=== PATIENT | male | born 1935 | race Caucasian/White ===

== ENCOUNTER 2018-10-16 10:12 | Inpatient (IN) ==
[2018-10-16] MEDS ORDERED: MORPHINE IV ONE (10:58)
[2018-10-16] MEDS ORDERED: SODIUM CHLORIDE 0.9% INJ ONE (10:59)
[2018-10-16] MEDS ORDERED: PHENERGAN IV ONE (10:59)
[2018-10-16 11:16] LABS: ALB/GLOB RATIO 1.6; ALBUMIN 4.2 g/dL (3.5-5.0); CALCIUM 8.9 mg/dL (8.8-10.2); CREATININE 1.2 mg/dL (0.7-1.2); POTASSIUM 4.6 mmol/L (3.5-5.1); TOTAL BILIRUBIN 0.71 mg/dL (0.20-1.00); TOTAL PROTEIN 6.9 g/dL (6.3-8.3)
[2018-10-16 11:28] LABS: BASO# 0.05 X1000 (0.0-0.2); BASO% 0.6 % (0.0-0.8); EOS# 0.16 X1000 (0.0-0.7); EOS% 1.8 % (0.0-10.0); HEMOGLOBIN 12.3 g/dL (14.0-18.0); IMM GRAN# 0.03 X1000 (0.0-0.04); IMM GRAN% 0.3 % (0.0-0.5); LYMPH# 2.33 X1000 (1.2-3.4); LYMPH% 26.6 % (20.5-51.1); MCH 31.1 PG (27-31); MCHC 33.2 g/dL (33-37); MCV 93.4 FL (81-99); MPV 9.6 FL (7.4-10.4); NEUT# 5.49 X1000 (1.4-6.5); NEUT% 62.7 % (42.2-75.2); PLT 218 X1000 (130-400); RBC 3.96 XMIL (4.7-6.1); RDW 13.7 % (11.5-14.5); WBC 8.76 X1000 (4.8-10.8)
--- NOTE | 2018-10-16 11:56 | Diag Imaging Result Doc PS360 ---
CHEST-2 VIEWS - 10/16/2018 INDICATION: chest pain COMPARISON: 09/30/2017 FINDINGS: Lungs are hyperexpanded compatible with COPD. There is some questionable infiltrate in the lingula with loss of the left heart border. There is mild cardiomegaly. No pneumothorax or pleural effusion. IMPRESSION: Faint lingular infiltrate/bronchial pneumonia. Severe COPD. Mild cardiomegaly. Electronically signed by Yunior Henriquez 10/16/2018 11:54 AM
--- NOTE | 2018-10-16 12:20 | PROVIDER DOCUMENTATION ---
This chart was entered by Rosenda Gamino Scribe, acting as scribe for Bud Chisholm DO. HPI-Chest Pain - General Chief Complaint: Chest Pain Stated Complaint: CP x 3 days Time Seen by Provider: 10/16/18 10:19 Source: patient, family, EMS Allergies/Adverse Reactions: Patient Allergies Allergy/AdvReac Type Severity Reaction Status Date / Time Penicillins Allergy Intermediate RASH Verified 01/13/18 06:35 Sulfa (Sulfonamide Allergy Intermediate RASH Verified 01/13/18 06:35 Antibiotics) [Sulfa(Sulfonamide Antibiotics)] Home Medications: Home Medication List Medication Instructions Recorded Confirmed Last Taken Type Aspirin 81 mg PO BID 01/07/15 10/16/18 01/04/18 History Pregabalin [Lyrica] 75 mg PO QHS #0 capsule 01/09/15 10/16/18 01/11/18 21:00 Rx Tamsulosin [Flomax] 0.4 mg PO DAILY #0 capsule 01/09/15 10/16/18 01/12/18 09:00 Rx Albuterol Sulfate [Proair Hfa] 8.5 gm IH PRN PRN 01/10/18 10/16/18 01/10/18 Hi story Budesonide/Formoterol Fumarate 1 puff INH BID 01/10/18 10/16/18 01/11/18 14:00 History [Symbicort 160-4.5 Mcg Inhaler] Lansoprazole 30 mg PO DAILY 01/10/18 10/16/18 01/12/18 08:00 History Levothyroxine [Synthroid] 125 microgm PO DAILY 01/10/18 10/16/18 01/12/18 08:00 History Metoprolol [Lopressor] 25 mg PO DAILY 01/10/18 10/16/18 01/12/18 08:00 History Zolpidem [Ambien] 10 mg PO QHS 01/10/18 10/16/18 01/12/18 21:00 History Hydrocodone/Acetaminophen [[place] 1 each PO Q4H PRN PRN #12 tablet 01/13/18 10/16/18 Unknown Rx 7.5-325 Tablet] - History of Present Illness-CP Nature of Presenting Problem: 82 y/o male presents to ED with worsening, pressure-like sternal/L sided chest pain, tingling in L shoulder/arm, and SOB onset 3 days ago. Pt reports breathing exacerbates his pain. Pt denies injury. Pt states he took 3-4 aspirin and 2-3 nitro at home this morning. Pt reports hx CHF and stents. Pt is alert and oriented. Location: reports: central, other (L sided) Chest Pain Radiation: reports: no radiation Quality of Pain: reports: pressure Severity in ED: severe Onset/Duration: 3 days ago Timing: still present, getting worse Context/Activities at Onset: reports: none Modifying Factors: worse with: breathing, palpation Associated Symptoms: reports: shortness of breath Nitro Today/Relief: 0.4 mg x 3, 0.4 mg x 4, provided at home, mild relief Aspirin Treatment Today: 81 mg x 3, 81 mg x 4, provided at home Prior Chest Pain/Cardiac Workup: reports: heart attack, other (stents; CHF) Similar Symptoms Previously?: Yes Recently Seen Here or By Another Healthcare Provider: No Review of Systems - Adult - REVIEW OF SYSTEMS - ADULT Constitutional: denies: chills, fever Eyes: reports: no symptoms reported Ears, Nose, Mouth & Throat: reports: no symptoms reported Cardiovascular: reports: chest pain. denies: palpitations Respiratory: reports: shortness of breath. denies: cough Gastrointestinal: denies: abdominal pain, diarrhea, nausea, vomiting Genitourinary: reports: no symptoms reported Musculoskeletal: denies: back pain, joint pain Integumentary: reports: no symptoms reported Neurological: reports: other (tingling in L shoulder/arm). denies: dizziness/vertigo, seizure Psychiatric: reports: no symptoms reported Endocrine: reports: no symptoms reported Hematologic/Lymphatic: reports: no symptoms reported Allergic/Immunologic: reports: no symptoms reported All Other Systems: Reviewed and Negative Past History - Adult - PAST MEDICAL HISTORY-ADULT Review of Records: reports: Old Records Reviewed, Nursing Assessment Review, Medications Reviewed Major Childhood Illnesses: reports: denies history Cardiovascular: reports: CHF, HTN, hyperlipidemia, [place] Genitourinary: reports: cancer (bladder) Endocrine/Immune: reports: thyroid disorder (hypo; thryroidectomy) Other Conditions: reports: cataract/glaucoma, MRSA - PRIOR SURGERIES/PROCEDURES Surgical/Procedure History: reports: hernia repair, other (eyebrow lift; cataract removal bilaterally; thyroidectomy; bladder) - IMMUNIZATION STATUS Childhood Immunizations: See Nurse Assessment Flu Vaccine: See Nurse Assessment - FAMILY HISTORY Family History: reviewed, not pertinent - SOCIAL HISTORY Smoking: less than 1 pack/day Provider spent 3-5 mins advising pt. on dangers of tobacco.: Discussed manners to quit use, and f/u contacts for add'l counseling. Substance Use: none/never Alcohol Use Frequency: rarely Living Situation: family Physical Exam-General - PHYSICAL EXAM-ADULT Initial Vital Signs Reviewed: Yes - CONSTITUTIONAL General Appearance: appears well, alert, no apparent distress - EYES Eyes: PERRL/EOMI, pink conjunctivae - HEAD, EARS, NOSE, MOUTH & THROAT HENMT: normocephalic/atraumatic, moist mucous membranes, normal ENT inspection - NECK Neck: non-tender, full range of motion - RESPIRATORY Respiratory: lungs clear, normal breath sounds, other (L chest wall tenderness) - CARDIOVASCULAR Cardiovascular: bradycardia - GASTROINTESTINAL (ABDOMEN) Abdominal Exam: normal bowel sounds, non tender, soft - MUSCULOSKELETAL Back Exam: normal inspection, no CVA tenderness, no vertebral tenderness Extremity: normal range of motion, non-tender, normal gait - SKIN Integumentary: normal color, warm/dry - NEUROLOGIC Neurologic: grossly normal - PSYCHIATRIC Psych/Mental Status: normal mood/affect, normal thought content, normal thought process, oriented x 3 - HEART Score HEART Score: History: Moderately Suspicious HEART Score: ECG: Normal HEART Score: Age: > or = 65 Years HEART Score: Risk Factors for Atherosclerotic Disease: > or = 3 Risk Factors or History of Atherosclerotic Disease HEART Score: Troponin: < or = Normal Limit Total HEART Score:: 5 Progress - PLAN OF CARE/RESULTS Progress/Plan/Lab Results: Vital Signs - 8 hr 10/16/18 10:15 Temperature 98.1 F Pulse Rate 61 Respiratory Rate 24 Blood Pressure 119/78 O2 Sat by Pulse Oximetry 97 Laboratory Results - last 24 hr 10/16/18 10/16/18 10/16/18 10:44 10:44 10:44 WBC 8.76 RBC 3.96 L Hgb 12.3 L Hct 37.0 L MCV 93.4 MCH 31.1 H MCHC 33.2 RDW Std Deviation 13.7 Plt Count 218 MPV 9.6 Immature Gran % (Auto) 0.3 Neut % (Auto) 62.7 Lymph % (Auto) 26.6 Pierce % (Auto) 8.0 Eos % (Auto) 1.8 Baso % (Auto) 0.6 Immature Gran # (Auto) 0.03 Neut # (Auto) 5.49 Lymph # (Auto) 2.33 Pierce # (Auto) 0.70 H Eos # (Auto) 0.16 Baso # (Auto) 0.05 Sodium 137 Potassium 4.6 Chloride 103 Carbon Dioxide 29 Anion Gap 5 BUN 21 Creatinine 1.2 Estimated GFR/1.73 m2 58 BUN/Creatinine Ratio 18 Glucose 112 H Calculated Osmolality 278 Calcium 8.9 Total Bilirubin 0.71 AST 11 ALT 8 L Alkaline Phosphatase 79 Creatine Kinase 32 Troponin T < 0.010 Total Protein 6.9 Albumin 4.2 Globulin 2.7 Albumin/Globulin Ratio 1.6 Orders Category Date Time Status CHEST-2 VIEWS [RAD] Stat Exams 10/16/18 10:49 Completed CBC WITH ELECTRONIC DIFF [HEME] Stat Lab 10/16/18 10:44 Completed CK PROFILE [SP CHEM] Stat Lab 10/16/18 10:44 Completed COMPREHENSIVE METABOLIC PANEL [CHEM] Stat Lab 10/16/18 10:44 Completed TROPONIN T Stat Lab 10/16/18 10:44 Completed Morphine Med 10/16/18 10:58 Discontinued 4 mg IV NOW ONE Promethazine [Phenergan] Med 10/16/18 10:59 Discontinued 12.5 mg IV NOW ONE Sodium Chloride 0.9% Med 10/16/18 10:59 Discontinued 10 ml INJ NOW ONE O2 Per Protocol Stat Oth 10/16/18 10:58 Active EKG [EKG] Stat Ther 10/16/18 10:50 Ordered Result Diagrams: 10/16/18 10:44 10/16/18 10:44 - EKG 1 Time of EKG reading by physician:: 10:21 EKG Read and Signed by:: Bud Chisholm EKG Interpretation (*Must complete 3 of following elements*): Abnormal Rate: 75 Rhythm: NSR [place]: normal QRS: other (possible inferior infarct) CA Interval: normal ST Wave: normal - XRAY 1 XRAY Study: Chest Impression: See EMR Report ([facility] [address], [address], [place] [id number] Department of Imaging Patient: IAN ANDREWS Date: 10/16/18MR#: [id number] : 1936ADM Status: REG ERAcct#: [id number] Age/Sex: 82/MRoom/Bed: Loc: ED Ordering Physician: Bud Chisholm DO Family Physician: Marina Moss MD Reason for Procedure: chest pain Signed CHEST-2 VIEWS - 10/16/2018 INDICATION: chest pain COMPARISON: 09/30/2017 FINDINGS: Lungs are hyperexpanded compatible with COPD. There is some questionable infiltrate in the lingula with loss of the left heart border. There is mild cardiomegaly. No pneumothorax or pleural effusion. IMPRESSION: Faint lingular infiltrate/bronchial pneumonia. Severe COPD. Mild cardiomegaly. Electronically signed by Yunior Henriquez 10/16/2018 11:54 AM 10/16/18 1154 Interpreting Physician: Yunior Henriquez MD Dictated Date/Time: 10/16/18 1152 cc: Bud Chisholm DO; Marina Moss MD) - CONSULTS/PCP/HOSPITALIST Notification #1 *Consult/PCP/Hospitalist*: CHARO Cerna for Dr. Mckeon Time Discussed: 12:17 Reason/Comments: Chest pain; HEART score of 5; pneumonia Consult Disposition: Admit Departure - Departure Date of Disposition Decision: 10/16/18 Time of Disposition Decision: 12:19 DIAGNOSIS: Tobacco use disorder Chest pain Qualifiers: Chest pain type: unspecified Qualified Code(s): R07.9 - Chest pain, unspecified Pneumonia Qualifiers: Pneumonia type: due to unspecified organism Laterality: left Lung location: lower lobe of lung Qualified Code(s): J18.1 - Lobar pneumonia, unspecified organism Disposition: ADMITTED INPATIENT 09 Certified Medical Emergency: Emergent Condition: Stable Referrals and Follow-Ups: Marina Moss MD [Primary Care Provider] - Discharge Education: Steps to Quit Smoking, [id number] - Critical Care Note This patient required my direct & personal management of CC.: No Attestation - Physician/ ALIVIA Attestation Patient care was provided by Advanced Practice Provider:: No The physician spent face to face time with patient:: Yes Advanced Practice Provider documentation review:: Supervising physician onsite and consulted in the evaluation and care of this patient. The physician did have a face to face encounter with the patient. This chart was documented by the indicated scribe, (Rosenda Gamino, Gal) and accurately reflects the services I performed and decisions made by me, Bud Chisholm DO, as attested by the provider's signature.
--- NOTE | 2018-10-16 13:46 | HISTORY AND PHYSICAL ---
PRIMARY CARE PROVIDER: CHARO Peace; however, he has not gone to his first visit yet. METAL FABRICATING INSPECTOR: Dr. Gay. FIELD MECHANIC: Dr. Cornejo, which he has not had his appointment yet either. CHIEF COMPLAINT: Left-sided chest pain. HISTORY OF PRESENT ILLNESS: Mr. Patel is an 82-year-old, male who carries a past medical history of COPD. He is not on any home O2 or inhalers. He continues to smoke 5 to 6 cigarettes a day. Hypertension, GERD, diverticulitis, and a history of bladder cancer, status post procedures with urology. Patient reported to the ED with a 3-day history of being woken up in sleep with a left stabbing chest pain that goes through to his shoulder intermittently. It is worse with deep breath and movement. He has had some tingling in his right arm and questionable palpitations but no associated nausea, vomiting, diaphoresis, dizziness. The pain lasts about 5 to 6 seconds and if he is very still, it will go away. He does report a productive cough with grayish sputum, heartburn. No fever. No chills. Recent sinus issues. Workup in the ED with a chest x-ray that showed faint lingular infiltrate, bronchial pneumonia, severe COPD, and mild cardiomegaly. He is being admitted for pneumonia. We will start him on IV Levaquin given his penicillin and sulfa allergy, as well as rule him out for any with cardiac enzymes, his first set was negative. PAST MEDICAL HISTORY: 1. Patient is denying history of diabetes mellitus. However, it is in his most recent history by Dr. Patel. 2. Severe COPD. 3. Hypertension. 4. History of bladder cancer, status post treatment by urology. 5. Diverticulitis. 6. Gastroesophageal reflux disease. 7. Peripheral vascular disease. 8. Congestive heart failure. PAST SURGICAL HISTORY: 1. Urology surgeries for his bladder cancer. 2. Thyroidectomy in 2009. REVIEW OF SYSTEMS: Twelve-point review of systems completely negative except for those mentioned in the HPI. FAMILY HISTORY: Reviewed and noncontributory. SOCIAL HISTORY: He continues to smoke 5 to 6 cigarettes a day and throughout the years, at one point, he was smoking 4 packs per day and then at times, he would only smoke 1 pack per day. No alcohol, marijuana, or illicit drug use. PHYSICAL EXAMINATION: VITAL SIGNS: Temperature is 98.1 degrees, heart rate 61, respirations 24, blood pressure 119/78, O2 of 97% on room air. GENERAL: Mr. Patel is a pleasant, 82-year-old, male who is sitting up in the bed, in no acute distress. HEENT: Atraumatic, normocephalic. PERRL. NECK: Supple. Trachea midline. CARDIOVASCULAR: S1, S2 appreciated. No murmurs, gallops, rubs noted. No JVD noted. No lower extremity edema. LUNGS: Somewhat decreased airway entry. The patient was having a hard time taking in a deep breath secondary to pain but I did not appreciate any rales, rhonchi, or wheezes. ABDOMEN: Soft, nontender, nondistended. Positive bowel sounds in 4 quadrants. EXTREMITIES: No cyanosis. NEUROLOGIC: Patient is awake, alert, oriented x4. Follows commands. Moves all extremities. DIAGNOSTIC DATA: Chest x-ray shows faint lingular infiltrate, bronchial pneumonia, severe COPD, and mild cardiomegaly. EKG is currently pending. LABORATORY DATA: White count 8, hemoglobin and hematocrit 12 and 37, platelet count is 218,000. Sodium 137, potassium 4.6, BUN 21, creatinine 1.2, blood glucose is 112. First set of troponin is 0.010. ASSESSMENT AND PLAN: 1. Probable lingular infiltrate, bronchial pneumonia. We will treat him with intravenous Levaquin. The patient has an allergy to penicillin and sulfa. We will continue with bronchodilators, supplemental oxygen, and aggressive pulmonary toilet. 2. Severe chronic obstructive pulmonary disease. We will continue bronchodilators and his home inhalers. However, in interview, he denied taking any home inhalers. 3. Congestive heart failure history, mild cardiomegaly seen on chest x-ray. We will recheck an echocardiogram. 4. Left-sided chest pain. His first set of cardiac enzymes was negative, probably due to his pneumonia. We will rule him out with 3 sets of cardiac enzymes and we will await those results before we consult cardiology and have him follow up as an outpatient. 5. Hypertension. We will continue home medications. 6. Diabetes mellitus. Patient takes no home medications for this. However, he denies history of diabetes. 7. Gastroesophageal reflux disease. 8. Bladder cancer history. 9. Thyroidectomy. We will continue his Synthroid. 10. Osteoarthritis and degenerative disk disease in the spine. We will continue with home Honeydew. 11. Further recommendations to follow physician evaluation, laboratory and diagnostic data. Dictated by CHARO Davis for Burt Mckeon MD cc: MD Joel Santana CRNP Mamoun I. Najjar, MD William D. Denney, MD
[2018-10-16] MEDS ORDERED: TYLENOL PO PRN ×2 (13:50)
[2018-10-16] MEDS ORDERED: ZOFRAN IV PRN (13:50)
--- NOTE | 2018-10-16 14:53 | HISTORY AND PHYSICAL ---
ADDENDUM: I have seen Mr. Patel today. I have examined him. The daughter and the granddaughter were at the bedside at the time of the encounter. Mr. Patel gives a history of about 4 days of chest pain. It seems to be pleuritic in nature, which has been progressively getting worse. This morning, he thinks that any little breath that he takes is extremely painful. I have also reviewed his labs and imaging studies. A chest x-ray seems to suggest a lingular infiltrate/bronchopneumonia. There is severe COPD and cardiomegaly. He does have an echocardiogram done in May of this year, which suggests an ejection fraction of 50%, and there was some hypokinesis of the inferior wall and basal inferolateral region. I have not seen his recent EKG yet. All his lab seems to be within normal range. ASSESSMENT: 1. Pleuritic left-sided chest pain with chest x-ray suggestive of a lingular pneumonia. The patient has a history of a remote superficial carcinoma of the bladder, which makes a good case to be concerned for if there is any malignancy. We are going to do a CTA of the lungs to rule out any pulmonary embolism and also to make sure that it is just not a pneumonia we are dealing with. 2. Advanced chronic obstructive pulmonary disease. The patient has mild wheezing. We will administer bronchodilation therapy. Consult Respiratory Therapy. The patient is already on antibiotics. 3. Ongoing tobacco use. The patient has been advised. 4. History of congestive heart failure, currently euvolemic. An echocardiogram early this year showed an ejection fraction of 50%, but this seems to suggest some hypokinesis of the inferior wall and basal wall, which would be concerning for a coronary artery disease. We are going to be trending the troponin for now, and give further recommendations once we know the results of the CTA. Please refer to the details of the history and physical, which has been dictated by the DEAF INTERPRETER in the chart. cc: Burt Mckeon MD
[2018-10-16] MEDS: NORCO-7.5 PO PRN ×2 (15:05→19:33)
[2018-10-16] MEDS: LEVAQUIN 750 MG/D5W 750 MG/150 ML IVPB IV SCH (15:06)
[2018-10-16] MEDS: XOPENEX NEB INH SCH ×3 (15:41→23:22)
[2018-10-16] MEDS: SYMBICORT 160/4.5 MICROGM INHALER INH SCH (19:10)
--- NOTE | 2018-10-16 20:25 | Diag Imaging Result Doc PS360 ---
CT ANGIOGRM PULMONARY ARTERIES - 10/16/2018 INDICATION: pleuritic chest pain TECHNIQUE: Axial CT images were obtained after administering intravenous contrast. Coronal MIP images were generated. COMPARISON: None FINDINGS: There is no pulmonary embolism. No adenopathy. There is cardiomegaly. Aortic arch and great vessels are normal. There is some mild patchy atelectasis or infiltrate in both lower lobes. There is also mild COPD and pulmonary fibrosis. There are moderate degenerative changes of the spine. No acute or suspicious bony lesion. IMPRESSION: Negative for pulmonary embolism. Mild cardiomegaly. Mild nonspecific atelectasis or infiltrate in both lower lobes. This exam was performed using automated exposure control, adjustment of mA or kV according to patient size, and/or use of iterative reconstruction technique Electronically signed by Yunior Henriquez 10/16/2018 8:21 PM
[2018-10-16] MEDS: ASPIRIN PO SCH (20:38)
[2018-10-16] MEDS: LYRICA PO SCH (20:38)
[2018-10-16] MEDS: AMBIEN PO SCH (20:38)
[2018-10-17] MEDS: XOPENEX NEB INH SCH ×6 (03:11→23:06)
[2018-10-17 06:28] LABS: BASO# 0.02 X1000 (0.0-0.2); BASO% 0.2 % (0.0-0.8); EOS# 0.12 X1000 (0.0-0.7); EOS% 1.4 % (0.0-10.0); HEMATOCRIT 35.3 % (42.0-52.0); HEMOGLOBIN 11.5 g/dL (14.0-18.0); IMM GRAN# 0.02 X1000 (0.0-0.04); IMM GRAN% 0.2 % (0.0-0.5); LYMPH# 2.17 X1000 (1.2-3.4); LYMPH% 25.5 % (20.5-51.1); MCH 31.2 PG (27-31); MCHC 32.6 g/dL (33-37); MCV 95.7 FL (81-99); MONO# 1.06 X1000 (0.11-0.59); MONO% 12.5 % (1.7-9.3); MPV 9.7 FL (7.4-10.4); NEUT# 5.12 X1000 (1.4-6.5); NEUT% 60.2 % (42.2-75.2); PLT 205 X1000 (130-400); RBC 3.69 XMIL (4.7-6.1); RDW 14.2 % (11.5-14.5); WBC 8.51 X1000 (4.8-10.8)
[2018-10-17] MEDS: PRILOSEC PO SCH (06:33)
--- NOTE | 2018-10-17 06:38 | Diag Imaging Result Doc PS360 ---
EXAM: CHEST-PORTABLE HISTORY: Pneumonia TECHNIQUE: Portable chest single view COMPARISON: 10/16/2018 FINDINGS: The lungs are well expanded. The left hemidiaphragm is elevated. The heart is mildly prominent. The vessels are not distended. There are infiltrates or atelectasis in the left lung base. No effusion identified. IMPRESSION: Interval worsening in the left base Electronically signed by Elie Thrasher 10/17/2018 6:36 AM
[2018-10-17 06:54] LABS: HEMOGLOBIN A1C 4.4 % (4.8-6.0)
[2018-10-17 06:57] LABS: AGAP 12; ALB/GLOB RATIO 1.3; ALBUMIN 3.8 g/dL (3.5-5.0); ALKALINE PHOSPHATASE 76 U/L (32-122); BUN 22 mg/dL (8-22); CALCIUM 8.7 mg/dL (8.8-10.2); CHLORIDE 100 mmol/L (98-107); CHOLESTEROL 122 mg/dL (0-200); COSMO 276; CREATININE 1.5 mg/dL (0.7-1.2); ESTIMATED GFR 45; GLUCOSE 113 mg/dL (70-104); GOT 10 U/L (10-34); GPT 6 U/L (10-44); HDL 33 mg/dL (35-55); LDL 71 mg/dL; MAGNESIUM 1.9 mg/dL (1.5-2.7); SODIUM 136 mmol/L (136-145); TCO2 24 mmol/L (25-35); TOTAL BILIRUBIN 0.49 mg/dL (0.20-1.00); TOTAL PROTEIN 6.7 g/dL (6.3-8.3); TRIGLYCERIDES 88 mg/dL (39-160); VLDL 18 mg/dL
--- NOTE | 2018-10-17 07:17 | EKG Report ---
Test Performed on : 10/17/2018 07:00:16 AM Test Reason : cp fu Blood Pressure : / mmHG Vent. Rate : 055 BPM Atrial Rate : 055 BPM P-R Int : 184 ms QRS Dur : 098 ms QT Int : 454 ms P-R-T Axes : 067 094 -20 degrees QTc Int : 434 ms Sinus bradycardia. with premature atrial complexes. Rightward axis Possible Inferior infarct (cited on or before 09-OCT-2009) T wave abnormality, consider lateral ischemia Abnormal ECG When compared with ECG of 16-OCT-2018 10:21, (Unconfirmed) premature atrial complexes. are now present Serial changes of Inferior infarct present Confirmed by Carlos WESTON, Kimani Richardson ([id number]) on 10/17/2018 9:31:18 AM
[2018-10-17] MEDS: FLOMAX PO SCH (08:00)
[2018-10-17] MEDS: ASPIRIN PO SCH ×2 (08:00→20:51)
--- NOTE | 2018-10-17 08:00 | EKG Report ---
Test Performed on : 10/16/2018 10:21:44 AM Test Reason : chest pain Blood Pressure : / mmHG Vent. Rate : 075 BPM Atrial Rate : 075 BPM P-R Int : 170 ms QRS Dur : 086 ms QT Int : 390 ms P-R-T Axes : 041 048 -07 degrees QTc Int : 435 ms Normal sinus rhythm. Possible Inferior infarct , age undetermined Abnormal ECG When compared with ECG of 10-JAN-2018 11:08, Nonspecific T wave abnormality now evident in Lateral leads Unconfirmed Result
[2018-10-17] MEDS: SYNTHROID PO SCH (08:01)
[2018-10-17] MEDS: LOPRESSOR PO SCH (08:01)
[2018-10-17] MEDS: SYMBICORT 160/4.5 MICROGM INHALER INH SCH ×2 (08:06→19:18)
[2018-10-17] MEDS ORDERED: NON-FORMULARY MED (Lansoprazole 30 MG) PO SCH (09:00)
[2018-10-17] MEDS ORDERED: ASPIRIN PO SCH (09:00)
[2018-10-17] MEDS: NS NEB INH SCH (11:16)
[2018-10-17] MEDS: LEVAQUIN 750 MG/D5W 750 MG/150 ML IVPB IV SCH (13:28)
[2018-10-17] MEDS: SOLU-MEDROL IV SCH (13:28)
--- NOTE | 2018-10-17 14:15 | ECHO REPORT ---
ORDER DATE: 10/17/2018 INDICATION: Chest pain. FINDINGS: 1. Right atrium appears normal in size. 2. There is mild tricuspid regurgitation. The RV systolic pressure is 38. 3. Normal RV size and systolic function. 4. No significant pulmonic insufficiency. 5. Normal left atrial size with a dimension of 3.3 cm. 6. No mitral valve prolapse. There is mild, possibly moderate mitral regurgitation. This is a very eccentric jet. This may be an underestimation. There was no evidence of mitral stenosis. 7. Normal LV size, end-diastolic dimension of 4.9 cm. There does not appear to be any clear evidence of significant left ventricular hypertrophy. The LV systolic function is difficult to estimate secondary to off axis views and poor resolution of the endocardial border. Estimated ejection fraction is borderline normal to normal with an estimation in the 50 to 55 percent range. 8. Aortic valve is sclerotic. There does not appear to be any clear evidence of stenosis. 9. Aorta appears normal in visualized segments. 10. No pericardial effusion seen. cc: Scooter Medina MD
--- NOTE | 2018-10-17 14:29 | CONSULTATION ---
DATE OF CONSULTATION: 10/17/2018 IMPRESSION: 1. Chest pain very atypical for myocardial ischemia and pleuritic. Features more suggestive of musculoskeletal etiology, although initial chest x-ray suggests possibility of lingular pneumonia. 2. Severe chronic obstructive pulmonary disease. 3. Atherosclerotic coronary artery disease. Patient has history of previous coronary angioplasty/stenting following myocardial infarction in the past. Last stress myocardial perfusion study in October 2016 indicated fixed inferolateral defect with some lata-infarct ischemia. Left ventricular ejection fraction has been around 40%. The patient has expressed preference for medical management unless clear indication of ischemia. 4. Hypertension. 5. Hyperlipidemia. 6. Chronic cigarette use, ongoing. RECOMMENDATIONS: 1. Agree with treatment for possible pneumonia as you are doing. 2. Smoking cessation strongly advised. 3. We will follow up after he improves and give consideration to re-evaluation with Lexiscan myocardial perfusion study, probably as an outpatient. As per patient wishes, unless he shows significant burden of inducible myocardial ischemia, conservative/medical management will be pursued. HISTORY: This 82-year-old, white male with a past history of atherosclerotic coronary artery disease, severe COPD, hypertension, hyperlipidemia, and peripheral vascular disease was admitted yesterday with chest pain. He reports having some tendency for left-sided, sharp chest discomfort, worse with deep breath for a few days. Discomfort is also worse with some movement of the upper extremities and torso. Discomfort is generally brief lasting, just a few seconds at a time and then going away. However, he could readily provoke discomfort with a deep breath. Discomfort intensified yesterday, prompting him to come in. Discomfort was improved with narcotic analgesics. He has had minimal cough. He is not aware of any fever. Chest x-ray on admission suggested possible lingular pneumonia. He has been started on treatment for this. Unfortunately, he continues to smoke 5 or 6 cigarettes a day. He admits that he probably never will quit. There has been no chest pain that resembles angina. PAST MEDICAL HISTORY: 1. Atherosclerotic coronary artery disease as outlined above. 2. Severe chronic obstructive pulmonary disease. 3. Hypertension. 4. History of bladder cancer and previous surgical management. 5. Diverticular disease of the colon. 6. Gastroesophageal reflux disease. 7. Peripheral vascular disease. 8. Ischemic cardiomyopathy with left ventricular ejection fraction of 40%. PAST SURGICAL HISTORY: Includes surgery for bladder cancer and previous thyroidectomy. ALLERGIES: He is allergic or intolerant to penicillin and sulfa. MEDICATIONS PRIOR TO ADMISSION: As listed. SOCIAL HISTORY: He lives in [place]. He smokes 5 or 6 cigarettes per day and admits he probably never will quit. He previously smoked very heavily, at a rate of 4 packs per day at one point. He does not use alcohol. FAMILY HISTORY: Negative for premature coronary disease. REVIEW OF SYSTEMS: Pulmonary: Noteworthy for chronic dyspnea symptoms that do not seem to have increased. He has had minimal cough. Gastrointestinal: Negative. Constitutional: Negative for fever. Remainder of review of systems negative/noncontributory with 14 total systems reviewed. PHYSICAL EXAMINATION: General: This is a pleasant, elderly, white male in no distress, on supplemental oxygen per nasal cannula. Vital Signs: Blood pressure 149/77, heart rate 61, oxygen saturation 95% on nasal cannula oxygen at 2 L per minute. HEENT Examination: Extraocular movements appear intact. Mucous membranes moist. Neck: Supple. There is no significant jugular venous distention. There are no carotid bruits. Chest: Clear to auscultation with somewhat diminished breath sounds diffusely. Cardiac Examination: Reveals a regular rate and rhythm without appreciable murmur or gallop. Abdomen: Soft. Bowel sounds are normal. Extremities: Without edema. Neurologic: Examination reveals him to be alert and fully oriented. Speech is fluent. He moves all 4 extremities equally well. Skin: Warm and dry. Psychiatric: Examination reveals his mood to be appropriate. PERTINENT DATA: Twelve lead EKG obtained on admission is reviewed and demonstrates normal sinus rhythm and a probable inferior infarct of undetermined age. LABORATORY DATA: Includes a white blood cell count of 8.51, hematocrit 35.3, hemoglobin 11.5, platelet count 205,000. Sodium 136, potassium 4.0, chloride 100, carbon dioxide 24, BUN 22, creatinine 1.5, glucose 113. Initial troponin T less than 0.01, followup troponin T less than 0.01, and third follow up troponin T less than 0.01. Triglycerides 88, total cholesterol 122, LDL cholesterol 71, HDL cholesterol 33. cc: Reji Gay MD
--- NOTE | 2018-10-17 14:47 | PROGRESS NOTE ---
DATE: 10/17/2018 SUBJECTIVE: This morning Mr. Patel refers to be feeling a lot better. Earlier on, I was told by his daughter that Mr. Patel had developed swelling under his chin. At that time, he had been sent for echocardiogram, so I could not see him. When I went back to check on him the 2nd time, there were 2 daughters and a granddaughter in the in the room with him, and he did say that the swelling has actually resolved, but it was there early on today. OBJECTIVE: Vital signs: Blood pressure is 153/64, pulse of 51, respiration is 22, temperature 97.6 degrees, the patient was saturating about 98% on 2 L. ON general exam, Mr. Patel is an 82- year-old gentleman. He was sitting up in the bed. No distress. Mucosa is pink and moist. Anicteric. Acyanotic. Neck: Supple. Chest: Air entry is bilaterally reduced. There is some bilateral wheezing in expiration with prolonged expiratory phase of respiration. Cardiovascular: Regular rate and rhythm. No murmurs, no rubs, no gallops. Extremities: No pedal edema. Central Nervous System: Patient is awake, alert, oriented. DIAGNOSTIC STUDIES: CBC is unremarkable except for mild normocytic anemia. CMP shows a creatinine of 1.5. Rest of chemistry is unremarkable. Echocardiogram done this morning has been for the most part unremarkable. ASSESSMENT: 1. Chest pain on presentation, presumably related to pulmonary process. A CTA of the lung was unremarkable for any acute process except for bilateral lower lobe infiltrate, questionable atelectasis versus pneumonia, but there was no PE. 2. Advanced chronic obstructive pulmonary disease with mild exacerbation. We will continue with antibiotics and bronchodilation therapy. I have started the patient also on steroids. 3. Ongoing tobacco use. Patient has been counseled. 4. History of coronary artery disease status post stents in the past. With the presenting chest pain, I think it is reasonable for Cardiology to evaluate the patient. So far, his echocardiogram and troponins have been negative. An EKG did show inferolateral T-wave inversions, but no ST-segment elevation or ST-segment abnormalities. 5. History of ischemic cardiomyopathy with a previous stress test suggestive of this diagnosis. The patient will be evaluated by Cardiology to see if there are any further studies that would need to be done as inpatient. 6. Acute subcutaneous swelling around the neck, questionable for allergic reaction. At this point, the patient does not have any symptoms. He feels fine. We are going to just keep eye on this and be vigilant with medication administration and when/if symptoms recur. cc: Burt Mckeon MD
[2018-10-17] MEDS: LYRICA PO SCH (20:51)
[2018-10-17] MEDS: AMBIEN PO SCH (21:40)
[2018-10-18] MEDS: SOLU-MEDROL IV SCH (01:34)
[2018-10-18] MEDS: XOPENEX NEB INH SCH ×2 (03:21→07:42)
[2018-10-18 07:28] VITALS: BP 136/64
[2018-10-18] MEDS: NS NEB INH SCH (07:42)
[2018-10-18] MEDS: SYMBICORT 160/4.5 MICROGM INHALER INH SCH (07:43)
[2018-10-18] MEDS: PRILOSEC PO SCH (07:52)
[2018-10-18] MEDS: SYNTHROID PO SCH (08:45)
[2018-10-18] MEDS: LOPRESSOR PO SCH (08:45)
[2018-10-18] MEDS: ASPIRIN PO SCH (08:45)
[2018-10-18] MEDS: FLOMAX PO SCH (08:45)
--- NOTE | 2018-10-18 20:46 | DISCHARGE SUMMARY ---
ADMISSION DATE: 10/16/2018 DISCHARGE DATE: 10/18/2018 DISPOSITION: Home. FOLLOWUP: 1. Dr. Moss. 2. Dr. Banda. 3. Dr. Gay. CONSULTATIONS DURING THIS ADMISSION: Cardiology was consulted. Patient was seen by Dr. Gay. INVASIVE PROCEDURES DONE DURING THIS ADMISSION: None. IMAGING STUDIES OF SIGNIFICANCE: 1. Chest x-ray revealed faint lingular infiltrates/bronchial pneumonia, severe COPD. 2. A CTA of the lung was negative for PE, showed mild cardiomegaly, mild nonspecific atelectasis or infiltrate in both lower lobes. 3. An echocardiogram showed an ejection fraction of 50 to 55 percent. No major wall abnormality. ADMISSION DIAGNOSES: 1. Probably lingular pneumonia. 2. Severe chronic obstructive pulmonary disease. 3. Congestive heart failure. 4. Left-sided chest pain. DIAGNOSES AT THE TIME OF DISCHARGE: 1. Chest pain on presentation, with unremarkable cardiac workup. Patient was evaluated by Cardiology. Chest pain resolved. 2. Acute hypoxemic respiratory failure secondary to severe advanced chronic obstructive pulmonary disease. 3. Chronic obstructive pulmonary disease exacerbation. 4. Ongoing tobacco use prior to hospitalization. Patient has been counseled. 5. History of coronary artery disease, status post stents in the past. 6. Ischemic cardiomyopathy. 7. Chronic kidney disease, stage 3A. DISCHARGE MEDICATIONS: 1. Aspirin 81 mg p.o. daily. 2. Pregabalin 75 p.o. at bedtime. 3. Tamsulosin 0.4 p.o. daily. 4. Lansoprazole 30 mg p.o. daily. 5. Metoprolol 25 mg p.o. daily. 6. Albuterol, ProAir. 7. Symbicort. 8. Levothyroxine 125 mcg p.o. daily. 9. Zolpidem 10 mg p.o. at bedtime. 10. Loving. 11. Spiriva 2.5 mcg inhaler 2 puffs daily. 12. Xopenex 1.25 q.4 p.r.n. 13. Prednisone 20 mg p.o. daily. 14. Levaquin 500 p.o. daily for 7 days. PRESENTING COMPLAINT: Left-sided chest pain. HISTORY OF PRESENTING COMPLAINT: Mr. Gee is an 82-year-old male who presented to the emergency department because of chest pain and shortness of breath. Upon presenting, Mr. Gee was evaluated, including imaging studies which revealed severe COPD and possible left lingular pneumonia. We thought at the point that Mr. Gee had a pleuritic chest pain because of the pneumonia. He was admitted for medical management. HOSPITAL COURSE: Mr. Gee was admitted to the medical floor and was started on broad-spectrum IV antibiotics, nebulization, and Respiratory Therapy was consulted. He seemed to have improved with initial management. However, because of his risk factors and the fact that he had a previous stress test abnormal, Cardiology was also consulted and patient was seen by Dr. 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 At this point, it does not appear that Cardiology is going to do any invasive workup, and they recommend just medical management at this point. Mr. Gee continues to show remarkable improvement during the hospital course. He was also started on steroids because of the bronchospasms associated with his COPD. This morning, he feels a lot better. He has been afebrile and oxygen saturations seem to have improved between 93 to 97 on 3 L. We are going to get him evaluated for home oxygen today. PHYSICAL EXAMINATION: Vital signs currently: Blood pressure is 136/64, pulse of 90, respirations are 24, temperature is 97.4 degrees. Physical exam is unremarkable except for the lungs. He still has some faint distant end- expiratory wheezing, but we think overall that Mr. gee has significantly improved that we can get him home. He does not complain of any more chest pain. All the discharge instructions have been discussed with him. He is going to be on antibiotics for a total of 7 days and steroid for 5 days. He has been given prescription also for his inhalers and p.r.n. nebulization solution. He will follow up with Dr. Banda or with Dr. Cornejo and with his sack sewer machine as well as with primary care doctor. At the time of the discharge, there was no family member at the bedside, but Mr. Gee was able to understand all the discharge instructions and he voiced understanding. TIME SPENT FOR DISCHARGE: 35 minutes. cc: MD Reji Santana MD Dr. Jindal Dr. Boyle MTDD
== END 2018-10-18 10:57 | disposition home or self-care (01) | DRG 190 ==
LOC: SUPCPDRO → ED 10:12 → 4N 13:48
PROVIDERS: ATTEND Internal Medicine
CPT/HCPCS: 71010; 71020; 71045; 71046; 71275; 80053; 80061; 82550; 83036; 83735; 84484; 85025; 93005; 93010; 93306; 94640; 94761; 94799; 96374; 96375; 97162; 97530; 99285; A9270; J1956; J2270; J2550; J2920; Q9967